=== PATIENT | male | born 1965 | race Caucasian/White ===

== ENCOUNTER 2018-06-25 21:14 | Emergency (ER) | payer SELFPAY ==
--- NOTE | 2018-06-25 21:19 | ER Document Report ---
ED Medical Screen (RME) - General Stated Complaint: ABDOMINAL PAIN Time Seen by Provider: 06/25/18 21:16 Mode of Arrival: Wheelchair Information source: Patient, Relative Notes: PT PRESENTS TO THE ED FOR C/O SEVERE ABDOMINAL PAIN POST BM THIS AM. NO N/V PAIN MID LOWER ABD. ABLE TO EAT, DRINKING LOTS OF WATER. TOOK MAG SULFATE AND IT WORKED REALLY GOOD I have greeted and performed a rapid initial assessment of this patient. A comprehensive ED assessment and evaluation of the patient, analysis of test results and completion of the medical decision making process will be conducted by additional ED providers. TRAVEL OUTSIDE OF THE [place] IN LAST 30 DAYS: No - Related Data Allergies/Adverse Reactions: No Known Allergies Allergy (Verified 03/18/14 14:06) Past Medical History - Immunizations Hx Diphtheria, Pertussis, Tetanus Vaccination: Yes Course - Laboratory Result Diagrams: 06/25/18 21:20 06/25/18 21:20 Laboratory results interpreted by me: 06/25/18 06/25/18 21:20 21:20 WBC 17.2 H Seg Neutrophils % 79.9 H Lymphocytes % 10.6 L Absolute Neutrophils 13.8 H Absolute Monocytes 1.5 H Glucose 134 H
[2018-06-25 21:49] LABS: ABSOLUTE EOSINOPHILS # (AUTO) 0.1 10^3/uL (0.0-0.6); ABSOLUTE LYMPHOCYTES (AUTO) 1.8 10^3/uL (0.5-4.7); ABSOLUTE MONOCYTES (AUTO) 1.5 10^3/uL (0.1-1.4); ABSOLUTE NEUT (AUTO) 13.8 10^3/uL (1.7-8.2); BASOPHILS % (AUTO) 0.1 % (0-2); EOSINOPHILS % (AUTO) 0.7 % (0-6); HEMATOCRIT 42.9 % (37.9-51.0); HEMOGLOBIN 15.3 g/dL (13.5-17.0); LYMPHOCYTES % (AUTO) 10.6 % (13-45); MEAN CORPUSCULAR HEMOGLOBIN 31.8 pg (27.0-33.4); MEAN CORPUSCULAR HGB CONC 35.6 g/dL (32.0-36.0); MEAN CORPUSCULAR VOLUME 89 fl (80-97); MONOCYTES % (AUTO) 8.7 % (3-13); PLATELET COUNT 299 10^3/uL (150-450); RED CELL DISTRIBUTION WIDTH 13.5 % (11.5-14.0); SEGMENTED NEUTROPHILS % (AUTO) 79.9 % (42-78); TOTAL CELLS COUNTED % (AUTO) 100 %; WHITE BLOOD COUNT 17.2 10^3/uL (4.0-10.5)
[2018-06-25 22:09] LABS: ALANINE AMINOTRANSFERASE 26 U/L (21-72); ALBUMIN 4.3 g/dL (3.5-5.0); ALKALINE PHOSPHATASE 82 U/L (38-126); ANION GAP 13 (5-19); ASPARTATE AMINO TRANSFERASE 20 U/L (17-59); BILIRUBIN,DIRECT 0.2 mg/dL (0.0-0.4); BILIRUBIN,TOTAL 0.5 mg/dL (0.2-1.3); BLOOD UREA NITROGEN 11 mg/dL (7-20); CALCIUM 9.4 mg/dL (8.4-10.2); CARBON DIOXIDE 22 mmol/L (22-30); CHLORIDE 104 mmol/L (98-107); GLUCOSE 134 mg/dL (75-110); POTASSIUM 3.7 mmol/L (3.6-5.0); TOTAL PROTEIN 6.9 g/dL (6.3-8.2)
--- NOTE | 2018-06-25 22:24 | RADIOLOGY REPORT (SQ) ---
XR ABDOMEN 1 VIEW (KUB) HISTORY: Left lower quadrant pain. COMPARISON: None. FINDINGS: There is a nonobstructive bowel gas pattern. No abnormal soft tissue calcifications are seen. There is a 1.7 cm area of sclerosis in the left femoral intertrochanteric region, nonspecific. IMPRESSION: No acute abdominal findings.
[2018-06-26] MEDS ORDERED: DICYCLOMINE HCL 20 MG TABLET PO ONE (00:23)
[2018-06-26 01:20] LABS: APPEARANCE,URINE SLIGHTLY-CLOUDY; BILIRUBIN,URINE NEGATIVE (NEGATIVE); COLOR,URINE YELLOW; GLUCOSE, URINE NEGATIVE (NEGATIVE); KETONES,URINE NEGATIVE (NEGATIVE); LEUKOCYTE ESTERASE,URINE NEGATIVE (NEGATIVE); NITRITE,URINE NEGATIVE (NEGATIVE); PROTEIN,URINE NEGATIVE (NEGATIVE); URINE SPECIFIC GRAVITY 1.019; UROBILINOGEN,URINE NEGATIVE mg/dL (<2.0)
--- NOTE | 2018-06-26 02:47 | RADIOLOGY REPORT (SQ) ---
CLINICAL HISTORY: abdominal pain COMPARISON: None. TECHNIQUE: CT ABDOMEN PELVIS WITH IV CONTRAST on 06/26/2018 12:37 AM CDT This exam was performed according to our departmental dose-optimization program, which includes automated exposure control, adjustment of the mA and/or kV according to patient size and/or use of iterative reconstruction technique. FINDINGS: Lower lungs are clear. Abdomen: The liver is normal in appearance. There is no biliary dilatation. Gallbladder is normal in appearance. The pancreas and spleen are normal in appearance. The adrenal glands and kidneys are unremarkable. Abdominal aorta is normal in course and caliber without aneurysm. There is no free air. There is no retroperitoneal adenopathy. Pelvis: There is mild diverticulosis of the sigmoid colon. There is mild thickening of the mid sigmoid colon with faint surrounding inflammation. Urinary bladder is unremarkable. There is no free fluid. Appendix is normal. Skeleton: There are no acute osseous findings. No suspicious bony lesions. IMPRESSION: Suspect mild mid sigmoid acute diverticulitis.
[2018-06-26 02:59] VITALS: BP 121/73
[2018-06-26] MEDS ORDERED: AMOXICILLIN TR/POT CLAVULANATE 500-125 MG TAB PO ONE (03:34)
--- NOTE | 2018-06-26 03:36 | ER Document Report ---
ED General - General Chief Complaint: Abdominal Pain Stated Complaint: ABDOMINAL PAIN Time Seen by Provider: 06/25/18 21:16 Mode of Arrival: Wheelchair Notes: Patient is a 53-year-old male who presents to the emergency department with a chief complaint of abdominal pain. His pain is in his mid lower abdomen. He states that his symptoms started at 7:00 this morning after having a bowel movement. He was wondering if it was gas or may be he needs to have a bowel movement. He ended up taking magnesium citrate and ended up having diarrhea after. He does have a history of hemorrhoids. Denies any abdominal surgeries and denies any past medical history. He does not take any medications. Has not seen a primary care doctor in regards to this issue. TRAVEL OUTSIDE OF THE [place] IN LAST 30 DAYS: No - Related Data Allergies/Adverse Reactions: No Known Allergies Allergy (Verified 03/18/14 14:06) Past Medical History - General Information source: Patient, Relative - Social History Smoking Status: Never Smoker Family History: Reviewed & Not Pertinent - Immunizations Hx Diphtheria, Pertussis, Tetanus Vaccination: Yes Review of Systems - Review of Systems Notes: REVIEW OF SYSTEMS: CONSTITUTIONAL : Denies recent illness. Denies recent unintentional weight loss. Denies fever, chills, or sweats. EENT: Denies eye, ear, throat, or mouth pain, discharge, or symptoms. Denies nasal or sinus congestion. CARDIOVASCULAR: Denies chest pain. RESPIRATORY: Denies shortness of breath, cough, congestion, difficulty breathing, or wheezing. GASTROINTESTINAL: See HPI GENITOURINARY: Denies difficulty urinating, burning, blood in urine, urgency or frequency. MUSCULOSKELETAL: Denies neck and back pain. Denies joint pain or swelling. SKIN: Denies rash, itchiness, or lesions HEMATOLOGIC : Denies easy bruising or bleeding. LYMPHATIC: Denies swollen, painful, enlarged glands. NEUROLOGICAL: Denies no numbness or tingling denies weakness. Denies headache. Denies altered mental status. Denies alteration in speech. PSYCHIATRIC: Denies stress, anxiety, alteration in sleep patterns, or depressio n. All other systems reviewed and negative. Physical Exam - Vital signs Vitals: Temp Pulse Resp BP Pulse Ox 98.5 F 98 18 121/73 98 06/25/18 21:23 06/25/18 21:23 06/25/18 21:23 06/25/18 21:23 06/25/18 21:23 - Notes Notes: PHYSICAL EXAMINATION: GENERAL: Appears well, healthy, well-nourished, no acute distress. HEAD: Normocephalic, atraumatic. EYES: PERRL, conjunctiva normal, all extraocular movements intact, sclera nonicteric ENT: Moist mucous membranes. NECK: Supple, no noticeable swelling, redness, rash. Normal range of motion. LUNGS: Equal breath sounds bilaterally and clear to auscultation. No wheezes rales or rhonchi. CARDIOVASCULAR: S1-S2, regular rate, regular rhythm. Radial pulses 2+, normal. ABDOMEN: Normoactive bowel sounds. Soft, tender mid lower, no guarding, no rebound tenderness, and no masses palpated. EXTREMITIES: Normal strength and range of motion, no pitting or edema. No cyanosis. NEUROLOGICAL: Moves all extremities upon command. Strength 5/5 in all extremities. PSYCH: Normal mood, normal affect. SKIN: Warm, dry. No rash, lesions, ulcerations noted. Normal skin turgor. Course - Re-evaluation Re-evalutation: 06/26/18 Patient's hematology shows a leukocytosis of 17,200. His chemistries are unremarkable and his urine are is negative. His KUB is unremarkable. I did an inguinal hernia exam with MITCHELL Barcenas at bedside. No hernia noted on exam. Patient will be sent for a CT of the abdomen to rule out any intra-abdominal etiology. 06/26/18 03:20 The patient has diverticulitis noted on his CAT scan and he will be started on Augmentin. I have discussed this case with Dr. Davis and she agrees. He will be on Augmentin 875 every 8 hours. He will also follow-up with a primary care doctor. Return precautions were given. Verbal discharge instructions were given to the patient. They verbalized understanding. They are stable for discharge. - Vital Signs Vital signs: Temp Pulse Resp BP Pulse Ox 98.5 F 98 18 121/73 98 06/25/18 21:23 06/25/18 21:23 06/25/18 21:23 06/25/18 21:23 06/25/18 21:23 - Laboratory Result Diagrams: 06/25/18 21:20 06/25/18 21:20 Laboratory results interpreted by me: 06/25/18 06/25/18 21:20 21:20 WBC 17.2 H Seg Neutrophils % 79.9 H Lymphocytes % 10.6 L Absolute Neutrophils 13.8 H Absolute Monocytes 1.5 H Glucose 134 H Discharge - Discharge Clinical Impression: Diverticulitis Abdominal pain Qualifiers: Abdominal location: lower abdomen, unspecified Qualified Code(s): R10.30 - Lower abdominal pain, unspecified Condition: Stable Disposition: HOME, SELF-CARE Additional Instructions: Diverticulitis You have been diagnosed as having diverticulitis. This is an inflammation of a small pouch attached to the colon, called a diverticulum. Many of these small pouches can form on the colon as you get older. They are often caused by constipation. When inflamed or infected, symptoms arise -- usually abdominal pain, constipation or diarrhea, fever, and blood in the stool. Severe diverticulitis may require hospitalization. More mild cases are usually treated with antibiotics and clear liquid diet. As you improve, a diet low in residue (one which forms little stool) is prescribed. When you are better, you should eat a high-fiber diet. Stool softeners ( like Metamucil) are usually recommended. Call the doctor or go to the hospital if there is increasing pain, vomiting, high fever, large amounts of blood passed, or if bowel movements cease. Prescriptions: Amox Tr/Potassium Clavulanate [Augmentin 875-125 Tablet] 1 tab PO Q8 10 Days #30 tablet Forms: Return to Work
== END 2018-06-26 03:56 | disposition home or self-care (01) ==
LOC: ER 21:14
DX: K57.92 Diverticulitis of intestine, part unspecified, without perforation or abscess without bleeding (principal); R10.30 Lower abdominal pain, unspecified
CPT/HCPCS: 99284; 36415; 85025; 80053; 81001; 74018; 74177; J3490